=== PATIENT | female | born 1980 | race African-American/Black ===

== ENCOUNTER 2024-12-02 18:06 | Inpatient (IN) | payer BC ==
[2024-12-02 19:06] LABS: INR 0.99 (0.83-1.09); PROTHROMBIN TIME (PATIENT) 10.9 SEC (9.7-13.0)
[2024-12-02 19:09] LABS: ACTIVATED PTT 30.3 SECONDS (25.2-36.5)
[2024-12-02 19:12] LABS: BASO % 1.9 % (0-2.0); EOS % 1.4 % (0-4.5); HEMATOCRIT 23.1 % (32.4-45.2); LYMPH % 27.7 % (8-40); MCHC 29.5 g/dl (32.0-36.0); MEAN CELL VOLUME 54.7 fl (80-96); MEAN PLT VOLUME 8.3 fl (7.5-11.1); MONO % 7.7 % (3.8-10.2); NEUT % 61.3 % (42.8-82.8); PLATELET COUNT 877 10^3/uL (134-434); RBC 4.22 M/mm3 (3.60-5.2); RDW 22.1 % (11.6-15.6); WHITE BLOOD COUNT 8.1 K/mm3 (4.0-10.0)
[2024-12-02 19:13] LABS: MCH 16.1 pg (25.7-33.7)
[2024-12-02 19:15] LABS: HEMOGLOBIN 6.8 GM/dL (10.7-15.3)
[2024-12-02 19:16] LABS: POTASSIUM 4.1 mmol/L (3.5-5.1)
[2024-12-02 19:18] LABS: ALBUMIN 3.3 g/dl (3.4-5.0); CALCIUM 9.1 mg/dL (8.5-10.1)
[2024-12-02 19:19] LABS: BLOOD UREA NITROGEN 16.6 mg/dL (7-18)
[2024-12-02 19:21] LABS: CREATININE 1.1 mg/dL (0.55-1.3)
[2024-12-02 19:23] LABS: BILIRUBIN,TOTAL 0.4 mg/dL (0.2-1); TOT PROT 7.3 g/dl (6.4-8.2)
[2024-12-02 20:43] LABS: ANISOCYTOSIS 2+; MACROCYTOSIS 1+; TEAR DROP CELLS 1+
[2024-12-03 00:14] VITALS: BMI 39.8
[2024-12-03 08:31] VITALS: BP 155/89; PULSE 81; RESP 16; TEMP 99.5
[2024-12-03] MEDS: LOSARTAN 50MG/HCTZ 12.5MG 1 TAB PO SCH (09:18)
[2024-12-03 09:34] LABS: HEMATOCRIT 24.5 % (32.4-45.2); HEMOGLOBIN 7.5 GM/dL (10.7-15.3); MCHC 30.5 g/dl (32.0-36.0); MEAN CELL VOLUME 56.6 fl (80-96); MEAN PLT VOLUME 8.2 fl (7.5-11.1); PLATELET COUNT 709 10^3/uL (134-434); RBC 4.34 M/mm3 (3.60-5.2); RDW 23.9 % (11.6-15.6); WHITE BLOOD COUNT 11.4 K/mm3 (4.0-10.0)
[2024-12-03 09:35] LABS: MCH 17.2 pg (25.7-33.7)
[2024-12-03] MEDS: ACETAMINOPHEN 325 MG TABLET (FP) PO PRN (09:44)
[2024-12-03 09:48] LABS: CALCIUM 8.7 mg/dL (8.5-10.1)
[2024-12-03 09:49] LABS: BLOOD UREA NITROGEN 12.4 mg/dL (7-18)
[2024-12-03 09:52] LABS: CREATININE 0.6 mg/dL (0.55-1.3)
[2024-12-03 09:53] LABS: BILIRUBIN,TOTAL 1.1 mg/dL (0.2-1); TOT PROT 6.7 g/dl (6.4-8.2)
[2024-12-03 11:09] LABS: ANISOCYTOSIS 0; MACROCYTOSIS 0
[2024-12-03 12:54] LABS: HEMATOCRIT 25.6 % (32.4-45.2); HEMOGLOBIN 7.9 GM/dL (10.7-15.3); MCHC 30.9 g/dl (32.0-36.0); MEAN CELL VOLUME 56.4 fl (80-96); MEAN PLT VOLUME 8.1 fl (7.5-11.1); PLATELET COUNT 796 10^3/uL (134-434); RBC 4.55 M/mm3 (3.60-5.2); RDW 24.2 % (11.6-15.6); WHITE BLOOD COUNT 10.5 K/mm3 (4.0-10.0)
[2024-12-03 12:55] LABS: MCH 17.4 pg (25.7-33.7)
== END 2024-12-03 13:37 | disposition home or self-care (01) | DRG 812 ==
LOC: JER 18:06 → OBSVTOIN 20:45 → JERBED 20:45 → J5S 23:57
PROVIDERS: ADMIT Student in an Organized Health Care Education/Training Program; ATTEND Internal Medicine
PROC: 30233N1 Transfusion of Nonautologous Red Blood Cells into Peripheral Vein, Percutaneous Approach (ICD-10-PCS; principal; 2024-12-03)
DX: D50.9 Iron deficiency anemia, unspecified (principal); D25.9 Leiomyoma of uterus, unspecified; I10 Essential (primary) hypertension; D75.839 Thrombocytosis, unspecified; N92.0 Excessive and frequent menstruation with regular cycle
CPT/HCPCS: 36415; 36430; 71045-TC-FY; 80053; 82272; 84484; 84703; 85025; 85027; 85610; 85730; 86850; 86900; 86901; 86922; 93005; 93010; 99285-25; P9058